=== PATIENT | female | born 1950 | race Caucasian/White ===

== ENCOUNTER 2021-02-24 10:35 | Outpatient (CLI) | payer MEDICARE ==
[2021-02-25 08:01] LABS: SARS-CoV-2 PCR by NAA Not Detected (NotDetected)
== END 2021-02-24 10:36 | disposition home or self-care (01) ==
LOC: CSHLAB 10:35
PROVIDERS: ATTEND Internal Medicine Critical Care Medicine
DX: Z20.822 Contact with and (suspected) exposure to COVID-19 (principal)
CPT/HCPCS: U0003; U0005

== ENCOUNTER 2021-03-01 13:28 | Outpatient (CLI) | payer MEDICARE | END 2021-03-01 13:29 | disposition home or self-care (01) | LOC: CSHMAMMO 13:28 | PROVIDERS: ATTEND Family Medicine | DX: Z13.820 Encounter for screening for osteoporosis (principal); Z78.0 Asymptomatic menopausal state; M85.89 Other specified disorders of bone density and structure, multiple sites | CPT/HCPCS: 77080 ==

== ENCOUNTER 2025-01-05 08:22 | Outpatient (CLI) | payer MEDICARE | END 2025-01-05 08:23 | disposition home or self-care (01) | LOC: CSHMAMMO 08:22 | PROVIDERS: ATTEND Family Medicine | DX: N64.89 Other specified disorders of breast (principal) | CPT/HCPCS: 76642; 77065; G0279 ==